=== PATIENT | female | born 1975 | race Caucasian/White ===

== ENCOUNTER 2022-02-15 08:57 | Emergency (ER) | payer MEDICARE, SELFPAY ==
--- NOTE | 2022-02-15 09:03 | ED.SKABFB ---
HPI - Skin/Abscess/Foreign Bdy General Chief complaint: Skin/Abscess/Foreign Body Stated complaint: insect bite Time Seen by Provider: 02/15/22 09:18 Source: patient and RN notes reviewed Mode of arrival: ambulatory Limitations: no limitations History of Present Illness HPI narrative: 46-year-old female presents to the [facility] with complaints of an insect bite to the right buttock, thigh area. Red indurated area 1-1/2 cm with redness extending up to 4 cm. No fluctuance noted. No drainage. Patient has been applying some type of cream to the area with no improvement. Patient states is just been getting worse over the last 5 days. Onset (ago): day(s) (5) Related Data Home Medications Medication Instructions Recorded Confirmed atorvastatin 20 mg tablet 20 mg PO DIRECTED 02/15/22 02/15/22 betamethasone dipropionate 0.05 % 1 applic topical DIRECTED 02/15/22 02/15/22 topical cream budesonide-formoterol HFA 160 1 inh inhalation DIRECTED 02/15/22 02/15/22 mcg-4.5 mcg/actuation aerosol inhaler (Symbicort) cetirizine 10 mg tablet 10 mg PO DIRECTED 02/15/22 02/15/22 citalopram 40 mg tablet 40 mg PO DIRECTED 02/15/22 02/15/22 clindamycin phosphate 1 % topical 1 applic topical DIRECTED 02/15/22 02/15/22 solution clobetasol 0.05 % scalp solution 0.05 applic topical DIRECTED 02/15/22 02/15/22 gabapentin 600 mg tablet 600 mg PO DIRECTED 02/15/22 02/15/22 hydromorphone 4 mg tablet 4 mg PO DIRECTED 02/15/22 02/15/22 ketoconazole 2 % shampoo 1 applic topical DIRECTED 02/15/22 02/15/22 levothyroxine 50 mcg tablet 50 mcg PO DAILY 02/15/22 02/15/22 meloxicam 15 mg tablet 15 mg PO DAILY 02/15/22 02/15/22 metoprolol succinate 25 mg 25 mg PO DAILY 02/15/22 02/15/22 tablet,extended release 24 hr midodrine 5 mg tablet 5 mg PO DIRECTED 02/15/22 02/15/22 ondansetron 4 mg disintegrating 4 mg PO DIRECTED 02/15/22 02/15/22 tablet ranolazine 500 mg tablet,extended 500 mg PO DIRECTED 02/15/22 02/15/22 release,12 hr sumatriptan succinate 100 mg tablet 100 mg PO DIRECTED 02/15/22 02/15/22 topiramate 25 mg tablet 25 mg PO DAILY 02/15/22 02/15/22 zolpidem 10 mg tablet 10 mg PO DAILY 02/15/22 02/15/22 Allergies Allergy/AdvReac Type Severity Reaction Status Date / Time azithromycin Allergy Mild RASH, Unverified 02/15/22 09:09 VOMITING codeine Allergy Mild RASH Unverified 02/15/22 09:09 erythromycin base Allergy Mild RASH, Unverified 02/15/22 09:09 VOMITING propranolol Allergy Mild SLOW HEART Unverified 02/15/22 09:09 RATE Review of Systems Review of Systems: All systems reviewed & are unremarkable except as noted in HPI and below Constitutional: Constitutional: Reports no additional constitutional complaints, Denies chills and Denies fever(s) Eyes: Eyes: Reports no additional eye complaints ENT: Reports system reviewed and no additional complaints, except as documented Cardiovascular: Cardiovascular: Reports no additional cardiovascular complaints Respiratory: Respiratory: Reports no additional respiratory complaints Gastrointestinal: Gastrointestinal: Reports no additional gastrointestinal complaints Musculoskeletal: Musculoskeletal: Reports no additional musculoskeletal complaints Integumentary/Breasts: Skin/Breast: Reports as per HPI and Reports erythema (right lateral upper leg) Neurologic: Reports system reviewed and no additional complaints, except as documented Psychiatric: Psychiatric: Reports no additional psychiatric complaints Allergic/Immunologic: Allergic/Immunologic: Reports no additional allergic/immunologic complaints [facility] Past Medical History Medical History (Updated 02/15/22 @ 18:42 by Mily Ma APRN) Acute seasonal allergic rhinitis Anxiety and depression Chronic pain High cholesterol Insomnia Thyroid disease Social History Social History (Updated 02/15/22 @ 18:43 by Mily Ma APRN) Gender identity (if verbalized by the harsha
[2022-02-15 09:07] VITALS: BP 125/75; PULSE 71; RESP 16; TEMP 36.7; O2SAT 98
== END 2022-02-15 09:28 | disposition home or self-care (01) ==
PROVIDERS: Emergency Provider Nurse Practitioner; PCP Family Medicine
DX: S70.361A Insect bite (nonvenomous), right thigh, initial encounter (principal); W57.XXXA Bitten or stung by nonvenomous insect and other nonvenomous arthropods, initial encounter; L03.115 Cellulitis of right lower limb; E78.00 Pure hypercholesterolemia, unspecified; E07.9 Disorder of thyroid, unspecified; F41.9 Anxiety disorder, unspecified; F32.A Depression, unspecified
CPT/HCPCS: 99213; G0463

== ENCOUNTER 2022-03-10 15:13 | Emergency (ER) | payer MEDICARE, SELFPAY ==
[2022-03-10 15:26] VITALS: BP 126/53; PULSE 67; RESP 16; TEMP 36.8; O2SAT 99
--- NOTE | 2022-03-10 15:26 | ED.FEMALEGU ---
HPI - Female Genitourinary General Chief complaint: Urogenital-Female Stated complaint: uti Time Seen by Provider: 03/10/22 15:36 Source: patient and RN notes reviewed Mode of arrival: ambulatory Limitations: no limitations History of Present Illness HPI Narrative: 46 y/o female presented for c/o burning with urination, frequency, urgency and fever. Onset 2 days. States she noticed blood today. Denies n/v/d, abdominal pain, flank pain. Not taking anything for symptoms. Related Data Home Medications Medication Instructions Recorded Confirmed atorvastatin 20 mg tablet 20 mg PO DIRECTED 02/15/22 02/15/22 betamethasone dipropionate 0.05 % 1 applic topical DIRECTED 02/15/22 02/15/22 topical cream budesonide-formoterol HFA 160 1 inh inhalation DIRECTED 02/15/22 02/15/22 mcg-4.5 mcg/actuation aerosol inhaler (Symbicort) cetirizine 10 mg tablet 10 mg PO DIRECTED 02/15/22 02/15/22 citalopram 40 mg tablet 40 mg PO DIRECTED 02/15/22 02/15/22 clindamycin phosphate 1 % topical 1 applic topical DIRECTED 02/15/22 02/15/22 solution clobetasol 0.05 % scalp solution 0.05 applic topical DIRECTED 02/15/22 02/15/22 gabapentin 600 mg tablet 600 mg PO DIRECTED 02/15/22 02/15/22 hydromorphone 4 mg tablet 4 mg PO DIRECTED 02/15/22 02/15/22 ketoconazole 2 % shampoo 1 applic topical DIRECTED 02/15/22 02/15/22 levothyroxine 50 mcg tablet 50 mcg PO DAILY 02/15/22 02/15/22 meloxicam 15 mg tablet 15 mg PO DAILY 02/15/22 02/15/22 metoprolol succinate 25 mg 25 mg PO DAILY 02/15/22 02/15/22 tablet,extended release 24 hr midodrine 5 mg tablet 5 mg PO DIRECTED 02/15/22 02/15/22 ondansetron 4 mg disintegrating 4 mg PO DIRECTED 02/15/22 02/15/22 tablet ranolazine 500 mg tablet,extended 500 mg PO DIRECTED 02/15/22 02/15/22 release,12 hr sumatriptan succinate 100 mg tablet 100 mg PO DIRECTED 02/15/22 02/15/22 topiramate 25 mg tablet 25 mg PO DAILY 02/15/22 02/15/22 zolpidem 10 mg tablet 10 mg PO DAILY 02/15/22 02/15/22 Allergies Allergy/AdvReac Type Severity Reaction Status Date / Time azithromycin Allergy Mild RASH, Unverified 03/10/22 15:43 VOMITING codeine Allergy Mild RASH Unverified 03/10/22 15:43 erythromycin base Allergy Mild RASH, Unverified 03/10/22 15:43 VOMITING propranolol Allergy Mild SLOW HEART Unverified 03/10/22 15:43 RATE Review of Systems Review of Systems: ROS negative except as in HPI PMFSH Past Medical History Medical History Acute seasonal allergic rhinitis Anxiety and depression Chronic pain High cholesterol Insomnia Thyroid disease Social History Social History Gender identity (if verbalized by the patient): Female Comments At time of signature, I have reviewed and agree with nursing past medical, surgical, social and family history unless otherwise noted. Please see nursing chart for further information. There is no relevant family history pertinent to the presenting complaint Exam Narrative: GENERAL: Well-appearing ENT: Mucous membranes pink and moist. CHEST: No respiratory distress. Clear to auscultation. HEART: Regular rate and rhythm. ABDOMEN: Soft, nontender, nondistended, normal active bowel sounds. No CVA tenderness SKIN: Warm, dry, no rash. NEURO: Alert and oriented x3. PSYCH: Normal affect. Course Course Emergency Course: Patient is aware of diagnosis, understands and agrees to treatment plan. Anticipatory guidance given. Patient agrees to follow-up as directed and is aware of reasons to seek care at the emergency department. Portions of this record may have been created with voice recognition software Level of Care: Express Care Visit Vital Signs Vital signs: Vital Signs Temperature 98.2 F 03/10/22 15:26 Pulse Rate 67 03/10/22 15:26 Respiratory Rate 16 03/10/22 15:26 Blood Pressure 12
== END 2022-03-10 15:46 | disposition home or self-care (01) ==
PROVIDERS: Emergency Provider Nurse Practitioner Family; PCP Family Medicine
DX: N39.0 Urinary tract infection, site not specified (principal); E78.00 Pure hypercholesterolemia, unspecified; F41.9 Anxiety disorder, unspecified; F32.A Depression, unspecified; E03.9 Hypothyroidism, unspecified; I10 Essential (primary) hypertension; I34.1 Nonrheumatic mitral (valve) prolapse; M19.90 Unspecified osteoarthritis, unspecified site
CPT/HCPCS: 81003; 87086; 99213; G0463

== ENCOUNTER 2022-06-17 09:31 | Emergency (ER) | payer MEDICARE, SELFPAY ==
[2022-06-17 09:48] VITALS: BP 141/58; PULSE 85; RESP 16; TEMP 36.4; O2SAT 98
--- NOTE | 2022-06-17 10:36 | ED.URI ---
HPI - URI/Sore Throat General Chief Complaint: Upper Respiratory Infection Stated Complaint: Sore Throat, Ears Irritation, Fever Time Seen by Provider: 06/17/22 10:36 Source: patient and RN notes reviewed Mode of arrival: ambulatory Limitations: no limitations History of Present Illness HPI Narrative: 46-year-old female presenting for complaint of sore throat, bilateral ear pain and temp of a 100.4?, onset today. Pain 6-7/10. Taking Tylenol for symptoms. MD elicited complaint: sore throat Related Data Home Medications Medication Instructions Recorded Confirmed atorvastatin 20 mg tablet 20 mg PO DIRECTED 02/15/22 06/17/22 budesonide-formoterol HFA 160 1 inh inhalation DIRECTED 02/15/22 06/17/22 mcg-4.5 mcg/actuation aerosol inhaler (Symbicort) cetirizine 10 mg tablet 10 mg PO DIRECTED 02/15/22 06/17/22 citalopram 40 mg tablet 40 mg PO DIRECTED 02/15/22 06/17/22 gabapentin 600 mg tablet 600 mg PO DIRECTED 02/15/22 06/17/22 levothyroxine 50 mcg tablet 50 mcg PO DAILY 02/15/22 06/17/22 metoprolol succinate 25 mg 25 mg PO DAILY 02/15/22 06/17/22 tablet,extended release 24 hr midodrine 5 mg tablet 5 mg PO DIRECTED 02/15/22 06/17/22 topiramate 25 mg tablet 25 mg PO DAILY 02/15/22 06/17/22 Allergies Allergy/AdvReac Type Severity Reaction Status Date / Time azithromycin Allergy Mild RASH, Verified 06/17/22 10:14 VOMITING codeine Allergy Mild RASH Verified 06/17/22 10:14 erythromycin base Allergy Mild RASH, Verified 06/17/22 10:14 VOMITING propranolol Allergy Mild SLOW HEART Verified 06/17/22 10:14 RATE ipratropium [From Atrovent] Allergy Unknown Verified 06/17/22 10:15 Review of Systems Review of Systems: CONSTITUTIONAL: Endorses malaise, chills, sweats, fever EYES: Denies visual changes, redness, or discharge ENT: Reports rhinorrhea, congestion, sinus pain, otalgia, sore throat CARDIOVASCULAR: Denies chest pain, palpitations, edema RESPIRATORY: Reports cough, post nasal drainage. Denies dyspnea GASTROINTESTINAL: Denies abdominal pain, nausea, vomiting, diarrhea SKIN: Denies rash or itching MUSCULOSKELETAL: Endorses myalgia NEUROLOGIC: Denies headache [facility] Past Medical History Medical History Acute seasonal allergic rhinitis Anxiety and depression Chronic pain High cholesterol Insomnia Thyroid disease Social History Social History Gender identity (if verbalized by the patient): Female Exam Narrative: GENERAL: Ill-appearing, nontoxic EYES: PERRLA, conjunctivae clear ENT: Mucous membranes moist. TM pearly lópez with dull light reflex bilaterally; no tragal tenderness. Oropharynx erythematous tonsillar swelling 2+ without lesions or exudate, no drooling, no hoarseness, no trismus, uvula midline. No tripod positioning, muffled voice, soft palate or pharyngeal wall bulging NECK: Supple. No lymphadenopathy CHEST: Clear to auscultation, breath sounds equal. HEART: Regular rate and rhythm. No murmur heard. SKIN: Warm, dry, no rash. NEURO: Alert and oriented x3. Course Course Emergency Course: Patient is aware of diagnosis, understands and agrees to treatment plan. Anticipatory guidance given. Patient agrees to follow-up as directed and is aware of reasons to seek care at the emergency department. Portions of this record may have been created with voice recognition software Level of Care: Express Care Visit Vital Signs Vital signs: Vital Signs Temperature 97.6 F 06/17/22 09:48 Pulse Rate 85 06/17/22 09:48 Respiratory Rate 16 06/17/22 09:48 Blood Pressure 141/58 H 06/17/22 09:48 Pulse Oximetry 98 06/17/22 09:48 Oxygen Delivery Room Air 06/17/22 09:48 Temperature 97.6 F 06/17/22 09:48 Pulse Rate 85 06/17/22 09:48 Respiratory Rate 16 06/17/22 09:48 Blood Pressure 141/58 H 06/17/22 09:48 Pulse Oximetry 98 06/17/22
== END 2022-06-17 11:08 | disposition home or self-care (01) ==
PROVIDERS: Emergency Provider Nurse Practitioner Family; PCP Family Medicine
DX: J02.0 Streptococcal pharyngitis (principal); E78.00 Pure hypercholesterolemia, unspecified; F41.9 Anxiety disorder, unspecified; F32.A Depression, unspecified; E07.9 Disorder of thyroid, unspecified
CPT/HCPCS: 87880; 99213; G0463

== ENCOUNTER 2023-12-23 09:04 | Emergency (ER) | payer MEDICARE, SELFPAY ==
[2023-12-23 09:15] VITALS: BP 145/76; PULSE 80; RESP 16; TEMP 36.7; O2SAT 100
--- NOTE | 2023-12-23 09:59 | ED.GENADULT ---
HPI - General Adult General Chief complaint: Skin/Abscess/Foreign Body Stated complaint: rash Source: patient Mode of arrival: ambulatory Limitations: no limitations History of Present Illness HPI narrative: Patient presents for evaluation of skin symptoms. She indicates yesterday she noted some lesions to the right posterolateral aspect of her neck. This has progressed into a confluent area of erythema with central clearing. She now has similar scabbed lesions to the posterior aspect of the right lower extremity and also to the abdomen. She indicates she has lupus, rheumatoid arthritis and potentially Sjogren's. Denies any new lotions, soaps, topical products as she is quite sensitive to those types of things. She reports associated itching. She applied cold compresses which helped reduce itching. She denies any difficulty breathing or swallowing. She denies any known tick exposure. Related Data Home Medications Medication Instructions Recorded Confirmed atorvastatin 20 mg tablet 20 mg PO DIRECTED 02/15/22 12/23/23 budesonide-formoterol HFA 160 1 inh inhalation DIRECTED 02/15/22 12/23/23 mcg-4.5 mcg/actuation aerosol inhaler (Symbicort) cetirizine 10 mg tablet 10 mg PO DIRECTED 02/15/22 12/23/23 citalopram 40 mg tablet 40 mg PO DIRECTED 02/15/22 12/23/23 gabapentin 600 mg tablet 600 mg PO DIRECTED 02/15/22 12/23/23 levothyroxine 50 mcg tablet 50 mcg PO DAILY 02/15/22 12/23/23 metoprolol succinate 25 mg 25 mg PO DAILY 02/15/22 12/23/23 tablet,extended release 24 hr midodrine 5 mg tablet 5 mg PO DIRECTED 02/15/22 12/23/23 topiramate 25 mg tablet 25 mg PO DAILY 02/15/22 12/23/23 clobetasol 0.05 % scalp solution See Rx Instructions .Route .COMPLEX 12/23/23 12/23/23 famotidine 20 mg tablet 20 mg PO DAILY 12/23/23 12/23/23 ketoconazole 2 % shampoo See Rx Instructions .Route .COMPLEX 12/23/23 12/23/23 meloxicam 15 mg tablet 15 mg PO DAILY 12/23/23 12/23/23 mirabegron 25 mg tablet,extended 25 mg PO DAILY 12/23/23 12/23/23 release 24 hr (Myrbetriq) ranolazine 500 mg tablet,extended 500 mg PO DAILY 12/23/23 12/23/23 release,12 hr Allergies Allergy/AdvReac Type Severity Reaction Status Date / Time azithromycin Allergy Mild RASH, Verified 12/23/23 09:35 VOMITING codeine Allergy Mild RASH Verified 12/23/23 09:35 erythromycin base Allergy Mild RASH, Verified 12/23/23 09:35 VOMITING propranolol Allergy Mild SLOW HEART Verified 12/23/23 09:35 RATE ipratropium [From Atrovent] Allergy Unknown Unknown Verified 12/23/23 09:35 Review of Systems Review of Systems: CONSTITUTIONAL: Denies fever, chills, or sweats. EYES: Denies visual changes, redness, or discharge. ENT: Denies rhinorrhea, congestion, sore throat, or otalgia. CARDIOVASCULAR: Denies chest pain, palpitations, or edema. RESPIRATORY: Denies cough or dyspnea. GASTROINTESTINAL: Denies abdominal pain, nausea, vomiting, or diarrhea. GENITOURINARY: Denies dysuria or hematuria. SKIN: Reports pruritic rash to the posterolateral aspect of right side of her neck, posterior aspect of right lower extremity and abdomen MUSCULOSKELETAL: Denies back pain, joint pain, or myalgia. NEUROLOGIC: Denies headache, numbness, dizziness, or weakness. PSYCHIATRIC: Denies anxiety or depression. [facility] Past Medical History Medical History Acute seasonal allergic rhinitis Anxiety and depression Chronic pain High cholesterol Insomnia Lupus Rheumatoid arthritis Thyroid disease Surgical History Surgical History H/O: hysterectomy History of appendectomy Family History Family History Mother Family history unknown Social History Social History Substance use: never Living arrangements: with family Gender
== END 2023-12-23 10:04 | disposition home or self-care (01) ==
PROVIDERS: Emergency Provider Nurse Practitioner; PCP Family Medicine
DX: L30.9 Dermatitis, unspecified (principal); E78.00 Pure hypercholesterolemia, unspecified; M06.9 Rheumatoid arthritis, unspecified; F41.9 Anxiety disorder, unspecified; F32.A Depression, unspecified
CPT/HCPCS: 99213; G0463